=== PATIENT | female | born 1985 | race Caucasian/White ===

== ENCOUNTER 2016-12-29 14:14 | Observation (INO) | payer OTHER ==
[2016-12-30 06:37] LABS: GLUCOSE,POINT OF CARE 81 MG/DL (70-110)
[2016-12-30 06:39] VITALS: BP 103/66
[2016-12-30] MEDS ORDERED: PREN1TAB80 PO (06:41)
== END 2016-12-30 11:15 | disposition home or self-care (01) ==
LOC: 4S 12-30 05:50
PROVIDERS: ADMIT Obstetrics & Gynecology; ATTEND Obstetrics & Gynecology
DX: O62.9 Abnormality of forces of labor, unspecified (principal); O48.0 Post-term pregnancy; Z3A.40 40 weeks gestation of pregnancy
CPT/HCPCS: 36415; 59025; 82962; 89060; G0378

== ENCOUNTER 2016-12-30 14:10 | Inpatient (IN) | payer OTHER ==
[~2016-12-30] VITALS: Ht 157.5 cm; Wt 56.7 kg
[~2016-12-30 14:10] MED LIST: PREN1TAB80 PO
[2016-12-30] MEDS ORDERED: RINGERS SOLUTION,LACTATED 1,000 ML IV PRN (17:38)
[2016-12-30] MEDS ORDERED: OXYTOCIN 30 UNITS/LACT RINGERS 500 ML IV PRN (17:38)
[2016-12-30] MEDS ORDERED: METOCLOPRAMIDE HCL 5 MG/ML 2 ML VIAL IVP PRN (17:45)
[2016-12-30] MEDS ORDERED: FentaNYL CITRATE-PF 100 MCG/2 ML VIAL IVP PRN (17:45)
[2016-12-30] MEDS ORDERED: CITRIC ACID/SODIUM CITRATE 30 ML SOLUTION UDCUP PO PRN (17:45)
[2016-12-30 18:16] VITALS: BP 101/66
[2016-12-30] MEDS: RINGERS SOLUTION,LACTATED 1,000 ML IV SCH (18:31)
[2016-12-30 18:32] LABS: BASOPHILS # (AUTO) 0.23 K/uL (0.00-0.20); BASOPHILS % (AUTO) 1.9 % (0.0-2.0); EOSINOPHILS # (AUTO) 0.02 K/uL (0.00-0.70); EOSINOPHILS % (AUTO) 0.13 % (1.0-6.0); HEMATOCRIT 33.6 % (36-46); LYMPHOCYTES # (AUTO) 1.8 K/uL (1.0-4.8); LYMPHOCYTES % (AUTO) 14.5 % (22.0-44.0); MEAN CORPUSCULAR HEMOGLOBIN 30.8 pg (26.0-34.0); MEAN CORPUSCULAR HGB CONC 32.7 G/dL (31.0-37.0); MEAN CORPUSCULAR VOLUME 94 fL (80-100); MONOCYTES # (AUTO) 1.1 K/uL (0.1-1.0); MONOCYTES % (AUTO) 8.7 % (2.0-9.0); NEUTROPHILS # (AUTO) 9.3 K/uL (1.8-7.7); NEUTROPHILS % (AUTO) 74.8 % (40.0-70.0); RED BLOOD CELL COUNT(AUTO) 3.56 MIL/uL (4.00-5.20); WHITE BLOOD COUNT (AUTO) 12.4 K/uL (4.5-11.0)
[2016-12-30] MEDS ORDERED: OXYGEN THERAPY IH SCH (20:00)
[2016-12-31] MEDS ORDERED: FentaNYL/BUPIV 0.125%/NS/PF 200 ML ED ONE (01:01)
[2016-12-31] MEDS: RINGERS SOLUTION,LACTATED 1,000 ML IV SCH ×2 (01:01→06:19)
[2016-12-31] MEDS ORDERED: LIDOCAINE HCL 2%/EPI 1:200,000/PF 10 ML VIAL ONE (01:02)
[2016-12-31] MEDS ORDERED: OXYTOCIN 20 UNITS in RINGERS SOLUTION,LACTATED 1,000 ML IV SCH (14:07)
[2016-12-31] MEDS ORDERED: OxyCODONE HCL/ACETAMINOPHEN 5-325 MG TABLET PO PRN ×2 (14:15)
[2016-12-31] MEDS ORDERED: SENNA/DOCUSATE SODIUM 187-50 MG TABLET PO PRN (14:15)
[2016-12-31] MEDS ORDERED: BENZOCAINE 20%/MENTHOL 56 GM SPRAY CANISTER TP PRN (14:15)
[2016-12-31] MEDS ORDERED: GLYCERIN/WITCH HAZEL LEAF 40 PADS JAR TP PRN (14:15)
[2016-12-31] MEDS ORDERED: MEASLES/MUMPS/RUBELLA VACCINE, LIVE 0.5 ML/VIAL SQ ONE (14:15)
[2016-12-31] MEDS: MAGNESIUM HYDROXIDE SUSPENSION 30 ML UDCUP PO PRN (21:14)
[2017-01-01] MEDS: IBUPROFEN 800 MG TABLET PO PRN ×2 (02:11→09:09)
[2017-01-01 06:27] LABS: BASOPHILS % (AUTO) 0.2 % (0.0-2.0); EOSINOPHILS % (AUTO) 0.3 % (1.0-6.0); HEMATOCRIT 28.7 % (36-46); HEMOGLOBIN 9.1 g/dL (12.0-16.0); LYMPHOCYTES # (AUTO) 2.2 K/uL (1.0-4.8); LYMPHOCYTES % (AUTO) 10.7 % (22.0-44.0); MEAN CORPUSCULAR HEMOGLOBIN 30.1 pg (26.0-34.0); MEAN CORPUSCULAR HGB CONC 31.7 G/dL (31.0-37.0); MEAN CORPUSCULAR VOLUME 95 fL (80-100); MONOCYTES # (AUTO) 1.5 K/uL (0.1-1.0); MONOCYTES % (AUTO) 7.5 % (2.0-9.0); NEUTROPHILS # (AUTO) 16.4 K/uL (1.8-7.7); NEUTROPHILS % (AUTO) 81.3 % (40.0-70.0); RED BLOOD CELL COUNT(AUTO) 3.02 MIL/uL (4.00-5.20); RED CELL DISTRIBUTION WIDTH 15.6 % (11.5-14.5); WHITE BLOOD COUNT (AUTO) 20.1 K/uL (4.5-11.0)
[2017-01-01] MEDS: MAGNESIUM HYDROXIDE SUSPENSION 30 ML UDCUP PO PRN (09:10)
[2017-01-01] MEDS ORDERED: DSS100 PO (12:33)
[2017-01-01] MEDS ORDERED: IBUP-2070 PO (12:33)
[2017-01-01] MEDS ORDERED: FERR-89 PO ×2 (12:34)
== END 2017-01-01 13:20 | disposition home or self-care (01) | DRG 775 ==
LOC: OBSVTOIN 14:10 → 4S 14:10
PROVIDERS: ADMIT Obstetrics & Gynecology; ATTEND Obstetrics & Gynecology
PROC: 0KQM0ZZ Repair Perineum Muscle, Open Approach (ICD-10-PCS; principal; 2016-12-31)
PROC: 10E0XZZ Delivery of Products of Conception, External Approach (ICD-10-PCS; 2016-12-31)
PROC: 3E0S3CZ (ICD-10-PCS; 2016-12-31)
PROC: 00HU33Z Insertion of Infusion Device into Spinal Canal, Percutaneous Approach (ICD-10-PCS; 2016-12-31)
DX: O77.0 Labor and delivery complicated by meconium in amniotic fluid (principal); O70.1 Second degree perineal laceration during delivery; Z37.0 Single live birth; Z3A.01 Less than 8 weeks gestation of pregnancy
CPT/HCPCS: J2590; J3490; J7120